=== PATIENT | male | born 1955 | race African-American/Black ===

== ENCOUNTER 2022-02-23 09:49 | Inpatient (IN) | payer MEDICARE, OTHER ==
[~2022-02-23] VITALS: Ht 177.8 cm; Wt 86.8 kg
[2022-02-23 10:46] LABS: BASOPHILS % 0.8 % (0.0-2.0); EOSINOPHILS % 1.4 % (0.0-5.0); LYMPHOCYTES % 20.5 % (20.0-50.0); MEAN CORPUSCULAR HEMOGLOBIN 27.5 pg (28.0-32.0); MEAN CORPUSCULAR VOLUME 84.1 fL (80.0-94.0); MEAN PLATELET VOLUME 9.4 fl (7.4-10.4); MONOCYTES % 8.6 % (2.0-8.0); NEUTROPHILS % 68.7 % (40.0-76.0); PLATELET 202 x1000/uL (130-400); RED CELL DISTRIBUTION WIDTH 15.1 % (11.6-14.6)
[2022-02-23 10:55] LABS: HEMOGLOBIN. 6.9 g/dL (14.0-18.0)
[2022-02-23 10:57] LABS: CHLORIDE 111 mEq/L (98-107)
[2022-02-23] MEDS ORDERED: ACETAMINOPHEN 325MG TABLET PO PRN (13:15)
[2022-02-23] MEDS ORDERED: ONDANSETRON HCL 4MG/2ML INJ IV PRN (13:15)
[2022-02-23 22:24] VITALS: BP 138/74
[2022-02-24] VITALS (7 sets, daily range): BP systolic 131–149; BP diastolic 69–82
[2022-02-24 00:31] LABS: BASOPHILS % 0.6 % (0.0-2.0); EOSINOPHILS % 2.6 % (0.0-5.0); LYMPHOCYTES % 26.1 % (20.0-50.0); MEAN CORPUSCULAR HEMOGLOBIN 27.4 pg (28.0-32.0); MEAN CORPUSCULAR VOLUME 83.6 fL (80.0-94.0); MEAN PLATELET VOLUME 8.7 fl (7.4-10.4); MONOCYTES % 11.1 % (2.0-8.0); NEUTROPHILS % 59.6 % (40.0-76.0); PLATELET 187 x1000/uL (130-400); RED BLOOD CELL COUNT 2.25 mill/uL (4.7-6.1); RED CELL DISTRIBUTION WIDTH 14.9 % (11.6-14.6)
[2022-02-24 01:16] LABS: HEMATOCRIT. 18.9 % (42.0-52.0); HEMOGLOBIN. 6.2 g/dL (14.0-18.0)
[2022-02-24] MEDS ORDERED: HYDR-4133 MT (04:30)
[2022-02-24] MEDS: PANTOPRAZOLE SODIUM 40 MG/VIAL IV SCH (09:06)
[2022-02-24 13:21] LABS: CHLORIDE 109 mEq/L (98-107)
[2022-02-24] MEDS: PIPERACILLIN/TAZOBACTAM 3.375 G in DEXTROSE 5% WATER 50 ML IV SCH ×2 (15:17→21:31)
[2022-02-24] MEDS: AMLODIPINE 5MG TABLET PO SCH (16:57)
[2022-02-25] VITALS: BP 135/75
[2022-02-25 04:00] VITALS: BP 126/74
[2022-02-25] MEDS: PIPERACILLIN/TAZOBACTAM 3.375 G in DEXTROSE 5% WATER 50 ML IV SCH ×3 (06:03→22:31)
[2022-02-25 06:19] LABS: CHLORIDE 110 mEq/L (98-107)
[2022-02-25 06:28] LABS: TOTAL IRON BINDING CAPACITY 325 ug/dL (250-450)
[2022-02-25 06:50] LABS: FOLIC ACID (FOLATE) SERUM 16.7 ng/mL (>5.38)
[2022-02-25 07:02] LABS: BASOPHILS % 0.6 % (0.0-2.0); EOSINOPHILS % 3.2 % (0.0-5.0); HEMATOCRIT. 23.5 % (42.0-52.0); HEMOGLOBIN. 7.7 g/dL (14.0-18.0); LYMPHOCYTES % 19.8 % (20.0-50.0); MEAN CORPUSCULAR HEMOGLOBIN 27.4 pg (28.0-32.0); MEAN CORPUSCULAR VOLUME 84.4 fL (80.0-94.0); MEAN PLATELET VOLUME 9.2 fl (7.4-10.4); MONOCYTES % 9.7 % (2.0-8.0); NEUTROPHILS % 66.7 % (40.0-76.0); PLATELET 208 x1000/uL (130-400); RED BLOOD CELL COUNT 2.79 mill/uL (4.7-6.1); RED CELL DISTRIBUTION WIDTH 15.1 % (11.6-14.6)
[2022-02-25 08:00] VITALS: BP 146/80
[2022-02-25] MEDS: PANTOPRAZOLE SODIUM 40 MG/VIAL IV SCH (10:31)
[2022-02-25] MEDS: AMLODIPINE 5MG TABLET PO SCH ×2 (10:32→19:06)
[2022-02-25 12:21] VITALS: BP 137/78
[2022-02-25 16:26] VITALS: BP 145/76
[2022-02-25] MEDS ORDERED: IRON SUCROSE COMPLEX 100 MG/5 ML ML IV SCH (18:00)
[2022-02-25 20:00] VITALS: BP 138/74
[2022-02-25] MEDS: IRON SUCROSE COMPLEX 100 MG/5 ML ML IV SCH (20:35)
[2022-02-26] VITALS (12 sets, daily range): BP systolic 131–151; BP diastolic 69–83
[2022-02-26] MEDS: PIPERACILLIN/TAZOBACTAM 3.375 G in DEXTROSE 5% WATER 50 ML IV SCH ×3 (05:02→21:08)
[2022-02-26 06:55] LABS: BASOPHILS % 0.6 % (0.0-2.0); EOSINOPHILS % 2.9 % (0.0-5.0); HEMATOCRIT. 22.9 % (42.0-52.0); HEMOGLOBIN. 7.5 g/dL (14.0-18.0); LYMPHOCYTES % 20.5 % (20.0-50.0); MEAN CORPUSCULAR HEMOGLOBIN 27.5 pg (28.0-32.0); MEAN CORPUSCULAR VOLUME 84.6 fL (80.0-94.0); MEAN PLATELET VOLUME 8.7 fl (7.4-10.4); MONOCYTES % 11.6 % (2.0-8.0); NEUTROPHILS % 64.4 % (40.0-76.0); PLATELET 239 x1000/uL (130-400); RED BLOOD CELL COUNT 2.71 mill/uL (4.7-6.1); RED CELL DISTRIBUTION WIDTH 15.3 % (11.6-14.6)
[2022-02-26] MEDS: PANTOPRAZOLE SODIUM 40 MG/VIAL IV SCH (09:14)
[2022-02-26] MEDS: AMLODIPINE 5MG TABLET PO SCH ×2 (09:28→17:52)
[2022-02-26] MEDS: IRON SUCROSE COMPLEX 100 MG/5 ML ML IV SCH (21:08)
[2022-02-27] VITALS: BP 138/72
[2022-02-27 04:00] VITALS: BP 136/75
[2022-02-27] MEDS: PIPERACILLIN/TAZOBACTAM 3.375 G in DEXTROSE 5% WATER 50 ML IV SCH ×2 (04:55→14:20)
[2022-02-27 06:47] LABS: BASOPHILS % 0.4 % (0.0-2.0); EOSINOPHILS % 3.3 % (0.0-5.0); HEMATOCRIT. 26.9 % (42.0-52.0); HEMOGLOBIN. 8.9 g/dL (14.0-18.0); LYMPHOCYTES % 21.3 % (20.0-50.0); MEAN CORPUSCULAR HEMOGLOBIN 27.8 pg (28.0-32.0); MEAN CORPUSCULAR VOLUME 83.6 fL (80.0-94.0); MEAN PLATELET VOLUME 8.6 fl (7.4-10.4); PLATELET 279 x1000/uL (130-400); RED BLOOD CELL COUNT 3.21 mill/uL (4.7-6.1)
[2022-02-27 07:27] LABS: CHLORIDE 111 mEq/L (98-107)
[2022-02-27 08:00] VITALS: BP 148/83
[2022-02-27] MEDS: AMLODIPINE 5MG TABLET PO SCH ×2 (09:54→16:27)
[2022-02-27] MEDS: PANTOPRAZOLE SODIUM 40 MG/VIAL IV SCH (10:10)
[2022-02-27 12:00] VITALS: BP 136/78
[2022-02-27] MEDS ORDERED: DOCU-138 MT (14:27)
[2022-02-27] MEDS ORDERED: PROT40 MT (14:27)
[2022-02-27] MEDS ORDERED: LEVO500T90 MT (14:27)
[2022-02-27] MEDS ORDERED: FERR325T6 MT (14:27)
[2022-02-27 15:19] VITALS: BP 133/73
== END 2022-02-27 16:40 | disposition home or self-care (01) | DRG 377 ==
LOC: ER 10:10 → 6WST 12:44 → ENRESERV 19:22
PROVIDERS: ADMIT Internal Medicine; ATTEND Internal Medicine
PROC: 30233N1 Transfusion of Nonautologous Red Blood Cells into Peripheral Vein, Percutaneous Approach (ICD-10-PCS; principal; 2022-02-24)
DX: K57.33 Diverticulitis of large intestine without perforation or abscess with bleeding (principal); I21.4 Non-ST elevation (NSTEMI) myocardial infarction; E44.1 Mild protein-calorie malnutrition; N17.9 Acute kidney failure, unspecified; E46 Unspecified protein-calorie malnutrition; I24.8 Other forms of acute ischemic heart disease; I10 Essential (primary) hypertension; Z86.16 Personal history of COVID-19; D64.9 Anemia, unspecified; E87.8 Other disorders of electrolyte and fluid balance, not elsewhere classified; E78.5 Hyperlipidemia, unspecified; R77.8 Other specified abnormalities of plasma proteins; Z68.27 Body mass index [BMI] 27.0-27.9, adult
CPT/HCPCS: 36415; 71045; 74176; 80048; 80053; 82270; 82607; 82728; 82746; 83540; 83550; 83880; 84484; 85014; 85018; 85025; 85044; 85379; 86850; 86900; 86920; 87426; 93005; 93306; 99291; C9113; J2543; J7060; P9016